=== PATIENT | male | born 1940 | race Caucasian/White ===

== ENCOUNTER 2017-01-15 04:49 | Observation (INO) | payer MEDICARE ==
--- NOTE | ~2017-01-15 | HP ---
History And Physical [address] [place]. [address] NAME: FINESSE RUSHING : 40 STATUS : ADM Sumeet PAT#: [id number] AGE: 76 ADM/REG DATE : 01/15/17 MR#: [id number] REPORT SERV DATE: 01/15/17 DICTATED BY: RICARDO MURO DATE: 01/15/17 REPORT STATUS : Draft TRANSCRIBED BY: MODL DATE: 01/15/17 DATE OF ADMISSION: 01/15/2017 [facility] PHYSICIAN: Ricardo Muro M.D. CHIEF COMPLAINT: Chest pain. HISTORY OF PRESENT ILLNESS: Mr. Rushing is a 76-year-old man well known to me with a history of coronary artery disease and previous coronary stenting. He has had problems with intermittent chest pain over the years, but has had no exertional symptoms. He has had occasional chest pain, was on chronic nitrates. He awoke with severe substernal chest pain that buckled him over and he was reportedly found on the floor by family. He was responsive. He reported, the pain hit him all of a sudden. He was diaphoretic with it, but no nausea. He took multiple nitroglycerines with slow resolution over a period of 20 minutes or so. He was brought to the emergency room and his evaluation in the emergency room was negative. His EKG showed no acute changes. Troponin was negative. He was admitted and has had no recurrent pain. Denies palpitations or lightheadedness. He has some chronic mild dyspnea. REVIEW OF SYSTEMS: As per history of present illness. Ten other systems are negative. PAST MEDICAL HISTORY: 1. Coronary artery disease, previous RCA stenting with inferior infarction. 2. History of diastolic heart failure. 3. History of hemorrhagic stroke. 4. Hypercholesterolemia. 5. Hypertension. 6. Sleep apnea, intolerant to CPAP. FAMILY HISTORY: Positive for heart disease. SOCIAL HISTORY: The patient is . No tobacco is reported. ALLERGIES: CONTRAST, IV DYE, MORPHINE, CODEINE. HOME MEDICATIONS: Aspirin 81 daily, Lipitor 40 daily, Coreg 25 mg p.o. b.i.d., clonidine 0.1 p.o. b.i.d., Lasix 80 daily, Isordil 30 daily, lisinopril 40 daily, nitroglycerin, potassium. PHYSICAL EXAMINATION: VITAL SIGNS: The patient is afebrile. Heart rate 55, blood pressure 155/78. GENERAL: The patient is pleasant, obese white male, in no apparent distress. HEENT: Conjunctivae are anicteric, no xanthelasma, lips without cyanosis. NECK: Supple, normal JVP, carotids +2 without bruit. LUNGS: Clear to auscultation bilaterally, no wheezes, rales or rhonchi. History And Physical [address] [address] NAME: FINESSE RUSHING : 40 STATUS : ADM Sumeet PAT#: [id number] AGE: 76 ADM/REG DATE : 01/15/17 MR#: [id number] REPORT SERV DATE: 01/15/17 DICTATED BY: RICARDO MURO DATE: 01/15/17 REPORT STATUS : Draft TRANSCRIBED BY: TIM DATE: 01/15/17 CARDIOVASCULAR: Regular rate and rhythm. Normal S1 and S2 without S3. No murmur or rub. PMI is nondisplaced. ABDOMEN: Soft, nontender, nondistended, with normal bowel sounds. No hepatomegaly. EXTREMITIES: No clubbing, cyanosis. Trace lower extremity edema. NEURO/PSYCH: Alert and oriented to person, place and time. No obvious neurologic deficits. Mood and affect normal. IMAGING: EKG shows sinus bradycardia, right bundle branch block. No diagnostic ST-T wave changes. LABORATORIES: Negative troponin x1. IMPRESSION: 1. Chest pain, possible anginal. 2. Coronary artery disease with previous inferior myocardial infarction. 3. Chronic diastolic heart failure. 4. Hypertension. 5. Hypercholesterolemia. 6. Obesity. RECOMMENDATIONS: Mr. Rushing has had recurrent chest discomfort. He had a normal stress test previously, now comes in with recurrent severe chest pain. His troponins are negative. His EKG shows no acute changes. I have recommended an arteriogram for evaluation. We will follow up on the results and go from there. WO/TIM Ricardo Muro M.D., Ph.D, F.A.C.C. / [id number] CC: Ricardo Muro M.D., Ph.D, F.A.C.C.
[2017-01-15 04:40] LABS: BASOPHILS 0.4 %; BASOPHILS ABSOLUTE 0.02 10/3/uL (0.0-0.16); EOSINOPHILS ABSOLUTE 0.15 10/3/uL (0.0-0.53); ER CBC TAT 0 Hrs 07 Mins; HEMOGLOBIN 12.5 g/dL (13.6-17.8); IMMATURE GRANULOCYTES 0.4 %; IMMATURE GRANULOCYTES ABSOLUTE 0.02 10/3/uL (0.0-0.11); LYMPHOCYTES 27.8 %; LYMPHOCYTES ABSOLUTE 1.38 10/3/uL (0.67-4.30); MANUAL DIFF NO %; MEAN CORPUS HGB CONC 33.8 g/dL (32.0-36.0); MEAN CORPUSCULAR VOLUME 88.9 fL (80-100); MEAN PLATELET VOLUME 10.4 fL (9.2-13.0); NEUTROPHILS 62.4 %; NEUTROPHILS ABSOLUTE 3.09 10/3/uL (2.02-8.40); PLATELET COUNT 157 10/3/uL (150-400); RBC DISTRIBUTION WIDTH 14.1 % (12.0-16.0); RED CELL COUNT 4.16 10/6/uL (4.7-6.1)
[~2017-01-15 04:49] MED LIST: ASAB PO; AVODART PO; BENADRYL 50 MG50 MG PO; C5 PO; CAT1 PO; CIP5 PO; CITRACAL PO; COREG25 PO; DEPO-TESTOS200 MG/ML IM; DSS PO; DURICEF PO; FERROUS SULF325 M1 PO; FLOMAX4 PO; IMDUR30 PO; ISOSORB DIN30 MG; KDUR20 PO; KLOR-CON M2020 MEQ PO; L40 PO; L80 PO; LIPITOR40 PO; LISINOPRIL40 MG PO; MEDROL32 MG PO; MULTIVITAMI1 PO; NITROSTAT0.4 MG PO; NITROSTAT0.4 MG SL; NTG150 SL; NXL9 PO; PCET PO; PEP20 PO; PLAVIX PO; PR12.5 PO; PRILO PO; PROBIOTIC PO; PROSTAT PO; TESTOST ENA200 MG/ML IM; VICODINTAB PO; VITAMIN C100 MG PO; ZINC220C PO; [UNRECOGNIZED DRUG - OTHER]; [UNRECOGNIZED DRUG - REMARK]
[2017-01-15 04:56] LABS: BUN (BLOOD UREA NITROGEN) 21 MG/DL (6-23); CALCIUM, SERUM 8.7 MG/DL (8.5-10.4); CHEST PAIN PROFILE TAT 0 Hrs 23 Mins; CHLORIDE, SERUM 107 MMOL/L (96-112); CO2 (CARBON DIOXIDE) 32 MMOL/L (24-34); CREATININE 1.06 MG/DL (0.70-1.30); GFR AFRICAN AMERICAN 79 ML/MIN (>=60); GFR NON AFRICAN AMERICAN 68 ML/MIN (>=60); GLUCOSE, SERUM 106 MG/DL (60-99); POTASSIUM, SERUM 3.4 MMOL/L (3.5-5.3); SODIUM, SERUM 147 MMOL/L (135-148); TROPONIN I <0.02 NG/ML (<0.05)
[2017-01-15 05:18] LABS: INTERNATIONAL NORMAL RATI 1.2 UNITS (-); PARTIAL THROMBO TIME 24.8 SEC (22.5-37.2); PROTIME (NOT ORD) 14.6 SEC (12.0-14.5)
[2017-01-15 09:36] LABS: CHOLESTEROL 125 MG/DL (< 200); HDL CHOLESTEROL 42 MG/DL (> 39); LDL CHOLESTEROL 67 MG/DL (< 130); NON-HDL CHOLESTEROL 83 MG/DL (< 160); TRIGLYCERIDE 81 MG/DL (< 150); TROPONIN I <0.02 NG/ML (<0.05)
[2017-01-16 04:51] LABS: BASOPHILS 0.1 %; BASOPHILS ABSOLUTE 0.01 10/3/uL (0.0-0.16); EOSINOPHILS 0 %; HEMATOCRIT 38.2 % (40.0-51.0); HEMOGLOBIN 12.6 g/dL (13.6-17.8); IMMATURE GRANULOCYTES 0.4 %; IMMATURE GRANULOCYTES ABSOLUTE 0.03 10/3/uL (0.0-0.11); LYMPHOCYTES 13.2 %; LYMPHOCYTES ABSOLUTE 1.02 10/3/uL (0.67-4.30); MEAN CORPUSCULAR HEMOGLOB 30.1 pg (26.0-34.0); MEAN CORPUSCULAR VOLUME 91.4 fL (80-100); MEAN PLATELET VOLUME 10.1 fL (9.2-13.0); MONOCYTES 3.8 %; MONOCYTES ABSOLUTE 0.29 10/3/uL (0.21-1.20); NEUTROPHILS 82.5 %; NEUTROPHILS ABSOLUTE 6.36 10/3/uL (2.02-8.40); PLATELET COUNT 157 10/3/uL (150-400); RED CELL COUNT 4.18 10/6/uL (4.7-6.1)
[2017-01-16 04:53] LABS: MANUAL DIFF NO %; WHITE BLOOD CELLS 7.7 10/3/uL (4.5-10.5)
[2017-01-16 05:02] LABS: A/G RATIO 0.9 (0.7-1.9); ALBUMIN 2.9 G/DL (3.5-5.0); ALKALINE PHOSPHATASE 98 U/L (45-117); BUN (BLOOD UREA NITROGEN) 21 MG/DL (6-23); CALCIUM, SERUM 8.8 MG/DL (8.5-10.4); CHLORIDE, SERUM 111 MMOL/L (96-112); CHOL/HDL RATIO(NOT ORDER) 2.5 (0-5); CHOLESTEROL 127 MG/DL (< 200); CO2 (CARBON DIOXIDE) 29 MMOL/L (24-34); CREATININE 1.03 MG/DL (0.70-1.30); GFR AFRICAN AMERICAN 81 ML/MIN (>=60); GFR NON AFRICAN AMERICAN 70 ML/MIN (>=60); GLOBULIN 3.2 G/DL (2.5-4.1); GLUCOSE, SERUM 123 MG/DL (60-99); HDL CHOLESTEROL 50 MG/DL (> 39); LDL CHOLESTEROL 59 MG/DL (< 130); NON-HDL CHOLESTEROL 77 MG/DL (< 160); SGOT(AST) 15 U/L (5-40); SGPT(ALT) 32 U/L (5-65); SODIUM, SERUM 146 MMOL/L (135-148); TOTAL PROTEIN 6.1 G/DL (6.0-8.5); TRIGLYCERIDE 94 MG/DL (< 150)
[2017-01-16 05:05] LABS: POTASSIUM, SERUM 5.3 MMOL/L (3.5-5.3); TOTAL BILIRUBIN 0.3 MG/DL (0-1.2)
== END 2017-01-16 08:55 | disposition home or self-care (01) ==
LOC: ER 04:49 → CDU1 05:56
PROVIDERS: Internal Medicine Cardiovascular Disease; Nurse Practitioner; Specialist
DX: I25.110 Atherosclerotic heart disease of native coronary artery with unstable angina pectoris (principal); I11.0 Hypertensive heart disease with heart failure; I50.32 Chronic diastolic (congestive) heart failure; E78.00 Pure hypercholesterolemia, unspecified; G47.30 Sleep apnea, unspecified; Z99.89 Dependence on other enabling machines and devices; Z82.49 Family history of ischemic heart disease and other diseases of the circulatory system; Z91.041 Radiographic dye allergy status; Z88.5 Allergy status to narcotic agent; Z79.82 Long term (current) use of aspirin; Z79.899 Other long term (current) drug therapy; Z86.73 Personal history of transient ischemic attack (TIA), and cerebral infarction without residual deficits; Z90.49 Acquired absence of other specified parts of digestive tract; Z98.890 Other specified postprocedural states; Z96.652 Presence of left artificial knee joint
CPT/HCPCS: 71010; 80048; 80053; 80061; 83735; 83880; 84484; 85025; 85610; 85730; 93005; 93458; 99152; 99153; 99285; A9270-GY; C1760; C1769; G0378; J2250; J3010; Q9967